=== PATIENT | male | born 1950 | race Caucasian/White ===

== ENCOUNTER 2021-12-03 06:44 | Day surgery (SDC) | payer MEDICARE ==
[~2021-12-03] VITALS: Ht 180.3 cm; Wt 90.7 kg
[~2021-12-03 06:44] MED LIST: AMLODIPINE5 MG PO; ASPIRIN EC81 MG PO; BACTRIM DS1 TAB PO; CIPROFLOXACN500 MG PO; LISINOPRIL10 MG PO; LISINOPRIL20 MG PO; LISINOPRIL40 MG PO; NORCO1 TA1 PO; PRAVASTATIN40 MG PO; RANITIDINE150 M1 PO; TAMSULOSIN0.4 MG PO
[2021-12-03 09:21] VITALS: BP 110/66
== END 2021-12-03 09:39 | disposition home or self-care (01) ==
LOC: ENDO 06:44 → ORM 08:40 → ENDO 08:40 → ORM 11:00
PROVIDERS: ATTEND Surgery
PROC: 0DJD8ZZ Inspection of Lower Intestinal Tract, Via Natural or Artificial Opening Endoscopic (ICD-10-PCS; principal; 2021-12-03)
DX: Z12.11 Encounter for screening for malignant neoplasm of colon (principal); K57.30 Diverticulosis of large intestine without perforation or abscess without bleeding; K64.8 Other hemorrhoids; I10 Essential (primary) hypertension; Z86.010 Personal history of colon polyps